=== PATIENT | male | born 1930 | race Caucasian/White ===

== ENCOUNTER 2017-02-09 19:19 | Emergency (ER) | payer MEDICARE ==
[2017-02-09 19:41] VITALS: TEMP 98.2; O2SAT 94
[2017-02-09] MEDS ORDERED: ACETAMINOPHEN-CAFF-BUTALBITAL 1 EA TAB ONE (19:49)
[2017-02-09] MEDS ORDERED: ACETAMINOPHEN-CAFF-BUTALBITAL 1 EA TAB PO ONE (19:50)
--- NOTE | 2017-02-09 19:51 | RAD ---
EXAM DESCRIPTION: Knee,Right Complete CLINICAL HISTORY: 86 years Male fall yesterday with anterior pain COMPARISON: None. TECHNIQUE: Right knee, 3 views FINDINGS: No acute fractures or dislocations are identified. No osseous destructive lesions. No joint effusion is noted. There is retropatellar narrowing and spurring. Mild narrowing of the medial and lateral joint compartments with significant subchondral sclerosis and cyst formation medially. There are marginal osteophytes. Mild lateral patellar tilt. Old deformity of the proximal fibula. IMPRESSION: No acute fracture is identified. 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
--- NOTE | 2017-02-09 20:16 | ED.PDOC ---
History of Present Illness - General Chief Complaint: Lower Extremity Injury Stated Complaint: fell yesterday, c/o right knee pain Time Seen by Provider: 02/09/17 19:32 Source: patient Exam Limitations: no limitations - History of Present Illness Initial Comments: The patient is an 86-year-old male presenting with family secondary to pain in his right knee. He fell forward onto her right knee yesterday and has a 1" x 1" abrasion to the anterior proximal tibia area. Patellar mechanism is intact. He appears to be neurovascularly his baseline. The knee shows no evidence of any instability. He does have some mild swelling. No crepitus or deformity otherwise. No other injuries. Timing/Duration: 24 hours Severity: moderate Improving Factors: immobilization Worsening Factors: movement Associated Symptoms: denies symptoms Allergies/Adverse Reactions: Allergies NO KNOWN ALLERGY Allergy (Verified 02/09/17 19:40) Home Medications: Ambulatory Orders Acetaminophen W/ Codeine [Tylenol W/ CODEINE #3] 02/09/17 [id number]-[id number] [Fioricet] 1 ea PO Q8H PRN #21 tab 02/09/17 Lisinopril 20 mg PO 02/09/17 Metformin HCl 1,000 mg PO 02/09/17 Triamterene & Hydrochlorothiaz [Triamterene/Hydrochloroth 37.5-25 mg] 1 tab PO 02/09/17 Review of Systems - Review of Systems Constitutional: States: no symptoms reported EENTM: States: no symptoms reported Respiratory: States: no symptoms reported Cardiology: States: no symptoms reported Gastrointestinal/Abdominal: States: no symptoms reported Genitourinary: States: no symptoms reported Musculoskeletal: States: see HPI Skin: States: see HPI Neurological: States: no symptoms reported Endocrine: States: no symptoms reported All other Systems: No Change from Baseline Past Medical History (General) - Patient Medical History Hx Hypertension: Yes Hx Diabetes: Yes Hx MRSA: No Surgical History: cancer surgery - Vaccination History Hx Influenza Vaccination: No Family Medical History - Family History Father Family History: Unknown Physical Exam - Physical Exam General Appearance: Alert, Comfortable, No apparent distress Eye Exam: bilateral normal Ears, Nose, Throat: hearing grossly normal, normal ENT inspection Neck: non-tender Respiratory: no respiratory distress, no accessory muscle use Cardiovascular/Chest: normal peripheral pulses, no edema, other - regular rate Peripheral Pulses: radial,right: 2+, radial,left: 2+, dorsalis pedis,right: 2+, dorsalis pedis,left: 2+ Rectal Exam: deferred Extremity: normal range of motion, no pedal edema, normal capillary refill, other - normal passive and active range of motion of the right knee. See history of present illness. Neurologic: staff nuclear medicine technologist II-XII nml as tested, alert, normal mood/affect, oriented x 3 Skin Exam: normal color - abrasion as above Comments: Vital Signs - 24 hr 02/09/17 19:34 Temperature 98.2 F Pulse Rate [ 80 Right] Respiratory 18 Rate Blood Pressure 175/110 [Left Arm] O2 Sat by Pulse 94 L Oximetry Progress - Progress Progress: 02/09/17 20:16 the patient is a 86-year-old male presenting with a contusion to the right knee essentially. X-ray shows no evidence of fracture or dislocation. Ligamentous exam shows no evidence of any laxity. The patient should ambulate carefully. He can take ibuprofen or Aleve for discomfort and will also be written for some Fioricet for as needed use. He should expect pain for the next 2 weeks. ER warnings were given. Departure - Departure Clinical Impression: Contusion of knee, right Qualifiers: Encounter type: initial encounter Qualified Code(s): S80.01XA - Contusion of right knee, initial encounter Disposition: Discharge to Home or Self Care Condition: Fair Departure Forms: ED Discharge - Pt. Copy, Patient Portal Self Enrollment Diet: regular diet Activity: increase activity as tolerated Referrals: GLORIA HOPPER [Primary Care Provider] - 1-2 Weeks Prescriptions: [id number]-[id number] [Fioricet] 1 ea PO Q8H PRN #21 tab PRN Reason: Pain Home Medications: Ambulatory Orders Acetaminophen W/ Codeine [Tylenol W/ CODEINE #3] 02/09/17 Pgnyvhadewwxf-Tqar-Fviiuevxsr [Fioricet] 1 ea PO Q8H PRN #21 tab 02/09/17 Lisinopril 20 mg PO 02/09/17 Metformin HCl 1,000 mg PO 02/09/17 Triamterene & Hydrochlorothiaz [Triamterene/Hydrochloroth 37.5-25 mg] 1 tab PO 02/09/17 Additional Instructions: the patient is a 86-year-old male presenting with a contusion to the right knee essentially. X-ray shows no evidence of fracture or dislocation. Ligamentous exam shows no evidence of any laxity. The patient should ambulate carefully. He can take ibuprofen or Aleve for discomfort and will also be written for some Fioricet for as needed use. He should expect pain for the next 2 weeks. ER warnings were given.
[2017-02-09 20:28] VITALS: BP 167/98
== END 2017-02-09 20:27 | disposition home or self-care (01) ==
LOC: ER 19:19
DX: S80.01XA Contusion of right knee, initial encounter (principal); I10 Essential (primary) hypertension; E11.9 Type 2 diabetes mellitus without complications; W19.XXXA Unspecified fall, initial encounter; Y92.9 Unspecified place or not applicable